=== PATIENT | female | born 1985 | race African-American/Black ===

== ENCOUNTER 2016-06-05 19:54 | Emergency (ER) | payer MEDICAID, OTHER ==
[2016-06-05] MEDS ORDERED: NS 1,000 ML IV ONE (20:32)
[2016-06-05] MEDS ORDERED: ONDANSETRON 4 MG/2 ML VIAL IVP ONE (20:32)
--- NOTE | 2016-06-05 20:36 | UCPHY ---
H & P Time Seen by Provider: 06/05/16 20:10 Patient Type: Established HPI/ROS: CHIEF COMPLAINT: abdominal pain, diarrhea HISTORY OF PRESENT ILLNESS: Patient is a 30-year-old female who presents to the emergency department with abdominal pain and diarrhea starting this morning. The triage note states this started 3 days ago, but the patient reiterates that her symptoms started this morning. Patient describes mid abdominal discomfort. This is waxing and waning. It is moderate. It does not radiate. She has had nausea but no vomiting. Her diarrhea is nonbloody. She has had 3 total episodes today. She denies fevers or chills. Patient states she had her gallbladder out in April. She has an appointment with the surgeon tomorrow. REVIEW OF SYSTEMS: My complete review of systems is negative except as mentioned in the HPI. Past Medical/Surgical History: Includes hypertension, migraines Past surgical history: Cholecystectomy Social history: The patient does not smoke. Smoking Status: Never smoked Physical Exam: Vitals noted GENERAL: Well-appearing, in no acute distress, alert. HEENT: Eyes normal to inspection, normal pharynx, no signs of dehydration. NECK: No thyromegaly, no lymphadenopathy, supple. RESPIRATORY: Clear to auscultation bilaterally, no rales, rhonchi or wheezing. CVS: Regular rate and rhythm, no rubs, murmurs, or gallops. ABDOMEN: Soft, nondistended, no organomegaly. Mild tenderness to palpation just superior to the umbilicus. This is minimal. No rebound or guarding. BACK: Normal to inspection, no CVA tenderness. SKIN: Normal color, no rash, warm, dry. No pallor. EXTREMITIES: No pedal edema, no joint swelling. NEURO/PSYCH: Alert and oriented, normal mood and affect Constitutional: Initial Vital Signs Temperature (C) 37 C 06/05/16 19:56 Heart Rate 93 06/05/16 19:56 Respiratory Rate 14 06/05/16 19:56 Blood Pressure 143/89 H 06/05/16 19:56 O2 Sat (%) 97 06/05/16 19:56 O2 Delivery Mode Room Air Allergies/Adverse Reactions: No Known Allergies Allergy (Verified 06/05/16 19:55) Home Medications: Medication Instructions Recorded Lisinopril [Prinivil] 03/22/15 Minocycline HCl 10/30/15 Neurontin 10/30/15 SUMATRIPTAN SUCCINATE 10/30/15 Medical Decision Making ED Course/Re-evaluation: In urgent care discussed possible etiologies with the patient. I discussed the plan and answered all her questions. An IV was placed. The patient was given a L of normal saline for hydration. She was given Zofran 4 mg IV for nausea. Laboratory studies were obtained. Patient's chemistry and CBC were normal. Lipase was normal. Patient's AST and ALT were slightly elevated. Bilirubin was normal. Patient is noted to have recently had her gallbladder removed. I rechecked the patient. She was feeling better. On repeat examination abdomen was soft, nontender and nondistended. I discussed all her laboratory results. She will follow up with her surgeon tomorrow. She already has an appointment scheduled. She is given warnings prior to leaving. She will return with worsening symptoms. Differential Diagnosis: My differential includes but is not limited to viral illness, small-bowel obstruction, perforation, appendicitis, ovarian cyst, ovarian torsion, , ectopic , dehydration, electrolyte abnormality, sugar abnormality - Data Points Laboratory Results: Laboratory Results 06/05/16 21:02 06/05/16 21:02 06/05/16 06/05/16 06/05/16 21:02 21:02 21:02 WBC 5.27 10^3/uL 10^3/uL (3.80-9.50) RBC 4.53 10^6/uL 10^6/uL (4.18-5.33) Hgb 12.7 g/dL g/dL (12.6-16.3) Hct 38.3 % % (38.0-47.0) MCV 84.5 fL fL (81.5-99.8) MCH 28.0 pg pg (27.9-34.1) MCHC 33.2 g/dL g/dL (32.4-36.7) RDW 13.0 % % (11.5-15.2) Plt Count 229 10^3/uL 10^3/uL (150-400) MPV 9.8 fL fL (8.7-11.7) Neut % (Auto) 63.3 % % (39.3-74.2) Lymph % (Auto) 23.7 % % (15.0-45.0) [place] % (Auto) 6.3 % % (4.5-13.0) Eos % (Auto) 6.1 % % (0.6-7.6) Baso % (Auto) 0.2 % L % (0.3-1.7) Nucleat RBC Rel Count 0.0 % % (0.0-0.2) Absolute Neuts (auto) 3.34 10^3/uL 10^3/uL (1.70-6.50) Absolute Lymphs (auto) 1.25 10^3/uL 10^3/uL (1.00-3.00) Absolute Monos (auto) 0.33 10^3/uL 10^3/uL (0.30-0.80) Absolute Eos (auto) 0.32 10^3/uL 10^3/uL (0.03-0.40) Absolute Basos (auto) 0.01 10^3/uL L 10^3/uL (0.02-0.10) Absolute Nucleated RBC 0.00 10^3/uL 10^3/uL (0-0.01) Immature Gran % 0.4 % % (0.0-1.1) Immature Gran # 0.02 10^3/uL 10^3/uL (0.00-0.10) Sodium 137 mEq/L mEq/L (134-144) Potassium 3.7 mEq/L mEq/L (3.5-5.2) Chloride 101 mEq/L mEq/L (97-110) Carbon Dioxide 26 mEq/l mEq/l (22-31) Anion Gap 10 mEq/L mEq/L (8-16) BUN 10 mg/dL mg/dL (7-23) Creatinine 0.7 mg/dL mg/dL (0.6-1.0) Estimated GFR > 60 Glucose 86 mg/dL mg/dL (70-100) Calcium 9.1 mg/dL mg/dL (8.5-10.4) Total Bilirubin 0.9 mg/dL mg/dL (0.1-1.4) Conjugated Bilirubin 0.2 mg/dL mg/dL (0.0-0.5) Unconjugated Bilirubin 0.7 mg/dL mg/dL (0.0-1.1) AST 155 IU/L H IU/L (14-46) ALT 145 IU/L H IU/L (9-52) Alkaline Phosphatase 63 IU/L IU/L (38-126) Total Protein 6.9 g/dL g/dL (6.3-8.2) Albumin 3.5 g/dL g/dL (3.5-5.0) Lipase 116.0 IU/L IU/L (23-300) Beta HCG, Qual NEGATIVE Urine Color Urine Appearance Urine pH Ur Specific [place] Urine Protein Urine Ketones Urine Blood Urine Nitrate Urine Bilirubin Urine Urobilinogen Ur Leukocyte Esterase Ur Culture Indicated? Urine Glucose 06/05/16 20:45 WBC RBC Hgb Hct MCV MCH MCHC RDW Plt Count MPV Neut % (Auto) Lymph % (Auto) [place] % (Auto) Eos % (Auto) Baso % (Auto) Nucleat RBC Rel Count Absolute Neuts (auto) Absolute Lymphs (auto) Absolute Monos (auto) Absolute Eos (auto) Absolute Basos (auto) Absolute Nucleated RBC Immature Gran % Immature Gran # Sodium Potassium Chloride Carbon Dioxide Anion Gap BUN Creatinine Estimated GFR Glucose Calcium Total Bilirubin Conjugated Bilirubin Unconjugated Bilirubin AST ALT Alkaline Phosphatase Total Protein Albumin Lipase Beta HCG, Qual Urine Color YELLOW Urine Appearance CLEAR Urine pH 6.0 (5.0-7.5) Ur Specific [place] 1.010 (1.002-1.030) Urine Protein NEGATIVE (NEGATIVE) Urine Ketones NEGATIVE (NEGATIVE) Urine Blood NEGATIVE (NEGATIVE) Urine Nitrate NEGATIVE (NEGATIVE) Urine Bilirubin NEGATIVE (NEGATIVE) Urine Urobilinogen 0.2 EU EU (0.2-1.0) Ur Leukocyte Esterase NEGATIVE (NEGATIVE) Ur Culture Indicated? NOT INDICATED (NI) Urine Glucose NEGATIVE (NEGATIVE) Medications Given: Discontinued Medications Sodium Chloride (Ns) 1,000 mls @ 0 mls/hr IV ONCE ONE PRN Reason: Wide Open Stop: 06/05/16 20:33 Last Admin: 06/05/16 21:06 Dose: 1,000 mls Ondansetron HCl (Zofran) 4 mg IVP EDNOW ONE Stop: 06/05/16 20:33 Last Admin: 06/05/16 21:06 Dose: 4 mg Departure - Departure Disposition: Home, Routine, Self-Care Clinical Impression: Abdominal pain Qualifiers: Abdominal location: periumbilical Qualified Code(s): R10.33 - Periumbilical pain Diarrhea Qualifiers: Diarrhea type: presumed infectious Qualified Code(s): A09 - Infectious gastroenteritis and colitis, unspecified Condition: Good Instructions: Acute Diarrhea (ED), Abdominal Pain (ED) Additional Instructions: Return with increasing pain, worsening diarrhea, persistent fever, repeated vomiting or any other concerns. You need close follow-up. Keep your appointment with your surgeon tomorrow. Referrals: Marianna Sumner MD [Medical Doctor] - 1-2 days without fail - PQRS PQRS Measurement: My PQRS negative my PQRS negative my PQRS negative my PQRS negative 134: Depression screening and followup, PRIME MD-PHQ2 (12 years and older) Over the last 2 weeks, how often have you been bothered by any of the following problems? 1. Feeling down, depressed, or hopeless? 2. Little interest or pleasure in doing things? Patient answered no to both 1 and 2 130: Documentation of medications. Reviewed all patient medications, doses, route and frequency. 226: Do you smoke? No.
[2016-06-05 20:55] LABS: COLOR YELLOW; LEUKOCYTE ESTERASE,URINE NEGATIVE (NEGATIVE); NITRITE,URINE NEGATIVE (NEGATIVE)
[2016-06-05 21:07] LABS: % IMMATURE GRANULYOCYTES 0.4 % (0.0-1.1); ABSOLUTE IMMATURE GRANULOCYTES 0.02 10^3/uL (0.00-0.10); ADD DIFF? NO; ADD MORPH? NO; ADD SCAN? NO; ATYPICAL LYMPHOCYTE FLAG 30 (0-99); FRAGMENT RBC FLAG 0 (0-99); HEMATOCRIT 38.3 % (38.0-47.0); HEMOGLOBIN 12.7 g/dL (12.6-16.3); LEFT SHIFT FLG 0 (0-99); LIPEMIA HEMOLYSIS FLAG 80 (0-99); MEAN CELL HEMOGLOBIN CONCENTR. 33.2 g/dL (32.4-36.7); MEAN CELL VOLUME 84.5 fL (81.5-99.8); MEAN PLATELET VOLUME 9.8 fL (8.7-11.7); PLATELET CLUMPS FLAG 30 (0-99); PLATELET COUNT 229 10^3/uL (150-400); RED BLOOD CELL COUNT 4.53 10^6/uL (4.18-5.33)
[2016-06-05 21:20] LABS: ALANINE AMINOTRANSFERASE 145 IU/L (9-52); ALBUMIN 3.5 g/dL (3.5-5.0); ALKALINE PHOSPHATASE 63 IU/L (38-126); ANION GAP 10 mEq/L (8-16); ASPARTATE AMINOTRANSFERASE 155 IU/L (14-46); BILIRUBIN,TOTAL 0.9 mg/dL (0.1-1.4); BILIRUBIN-CONJUGATED 0.2 mg/dL (0.0-0.5); BILIRUBIN-UNCONJUGATED 0.7 mg/dL (0.0-1.1); CALCIUM 9.1 mg/dL (8.5-10.4); CARBON DIOXIDE 26 mEq/l (22-31); CHLORIDE 101 mEq/L (97-110); CREATININE 0.7 mg/dL (0.6-1.0); GLOMERULAR FILTRATION RATE > 60; GLUCOSE 86 mg/dL (70-100); POTASSIUM 3.7 mEq/L (3.5-5.2); SODIUM 137 mEq/L (134-144); TOTAL PROTEIN 6.9 g/dL (6.3-8.2)
[2016-06-05 21:59] VITALS: BP 133/86; PULSE 81; RESP 20; TEMP 98.4; O2SAT 98
== END 2016-06-05 21:56 | disposition home or self-care (01) ==
LOC: CED 19:54
DX: R10.9 Unspecified abdominal pain (principal); R19.7 Diarrhea, unspecified; I10 Essential (primary) hypertension
CPT/HCPCS: 80048-PO; 80076-PO; 81003-PO; 83690-PO; 84703-PO; 85025-PO; 96360-PO; 96361-PO; 96374-PO; 99215-PO; G0463-PO; J2405

== ENCOUNTER 2016-09-08 17:34 | Emergency (ER) | payer MEDICAID ==
[2016-09-08 18:05] VITALS: BP 130/78; PULSE 73; RESP 20
--- NOTE | 2016-09-08 18:19 | EDPHY ---
H & P Stated Complaint: itchy painful right ear HPI/ROS: CHIEF COMPLAINT: Right ear pain and itchiness HISTORY OF PRESENT ILLNESS: This is a 30-year-old female with a history of migraine headache and hypertension who presents with right ear discomfort and itchiness. This began yesterday. She experiences pain that is short lived, lasting a few seconds, and intermittent, occurring every 5 minutes or less. It is not exacerbated by chewing or talking. There has been no drainage from the ear. She has not had headache. She does not have fever. She denies sore throat, cough, rhinorrhea. No trauma to the ear. REVIEW OF SYSTEMS: A ten point review of systems was performed and is negative with the exception of the items mentioned in the HPI. Source: Patient Exam Limitations: No limitations - Personal History LMP (Females 10-55): Unknown Current Tetanus/Diphtheria Vaccine: Unsure Current Tetanus Diphtheria and Acellular Pertussis (TDAP): Unsure Tetanus Vaccine Date: < 10 years - Medical/Surgical History Hx Asthma: No Hx Chronic Respiratory Disease: No Hx Diabetes: No Hx Cardiac Disease: No Hx Renal Disease: No Hx Cirrhosis: No Hx Alcoholism: No Hx HIV/AIDS: No Hx Splenectomy or Spleen Trauma: No Other PMH: hypertension, migraines, christie 05/04/16. - Social History Smoking Status: Never smoked Additional Social History: She is working in a [employer] school. No tobacco or alcohol use. - Physical Exam Exam: General Appearance: Alert. Vital signs reviewed. Blood pressure 130/78. Eyes: Pupils equal and round, no conjunctival injection, no discharge. Anicteric. ENT, Mouth: Mucous membranes are moist, no oropharyngeal erythema or edema. No intraoral lesions. External auditory canals and tympanic membranes appear normal. The left tympanic membrane is partially (about 1/3) obscured by cerumen. No mastoid swelling or tenderness. Neck: No lymphadenopathy, supple. Respiratory: Lungs are clear to auscultation; no wheezes, rales, or rhonchi. Cardiovascular: Regular rate and rhythm; no murmur, rub, or gallop. Gastrointestinal: Abdomen is soft and nontender. Skin: Warm and dry, no rashes on exposed skin, normal color. Extremities: No lower extremity edema, no calf tenderness or swelling. Neurological: Alert and oriented. Moving all four extremities easily and equally. Psychiatric: Normal affect. Constitutional: Initial Vital Signs Temperature (C) 36.9 C 09/08/16 18:00 Heart Rate 73 09/08/16 18:00 Respiratory Rate 20 09/08/16 18:00 Blood Pressure 130/78 H 09/08/16 18:00 O2 Sat (%) 100 09/08/16 18:00 O2 Delivery Mode Room Air Allergies/Adverse Reactions: No Known Allergies Allergy (Verified 09/08/16 17:58) Home Medications: Medication Instructions Recorded Lisinopril [Prinivil] 03/22/15 Minocycline HCl 10/30/15 Neurontin 10/30/15 SUMATRIPTAN SUCCINATE 10/30/15 Medical Decision Making ED Course/Re-evaluation: I do not find an etiology for her ear pain and itchiness. Seems unlikely that this is environmental allergy, as it is so localized. There is no evidence of otitis externa or otitis media. She has some cerumen in the left ear but very little cerumen in the right ear. Given the intermittent nature of her discomfort it is possible that this is a trigeminal neuralgia. The pain does not seem to be lancinating or particularly severe at the time that I examine her. She is not experiencing dizziness or vertigo. There has been no change in her hearing. I am recommending symptomatic treatment with Tylenol and ibuprofen. I am also recommending an antihistamine for the itching sensation. Departure - Departure Disposition: Home, Routine, Self-Care Clinical Impression: Ear pain, right Condition: Good Instructions: Earache (ED) Additional Instructions: Adult Pain & Fever Control: We recommend Acetaminophen (Tylenol) and Ibuprofen (Motrin,Advil) for pain and fever control. When fever is high or pain severe, both drugs can be used at the same time, but at different intervals. Please note the time differences. Your dose is: Acetaminophen [650]mg every 4 to 6 hours Ibuprofen [400]mg every [for] hours with food Note: do not take Acetaminophen with Hydrocodone (Vicodin, Lortab) or Oycodone (Percocet). These medications also contain Acetaminophen. No more than 3000mg of Acetaminophen should be taken in 24 hours (for an adult). You might also try a medication for itching such as Benadryl or Claritin. Benadryl might make you sleepy, Claritin will not. I do not see evidence of infection in either ear. Keep your appointment on at [facility]. Referrals: NONE *PRIMARY CARE P,. [Primary Care Provider] - As per Instructions [facility] [Outside] - As per Instructions
[2016-09-08 18:26] VITALS: TEMP 98.6; O2SAT 99
== END 2016-09-08 18:25 | disposition home or self-care (01) ==
LOC: CED 17:34
DX: H92.01 Otalgia, right ear (principal); I10 Essential (primary) hypertension

== ENCOUNTER 2017-01-20 13:56 | Emergency (ER) | payer MEDICAID ==
--- NOTE | 2017-01-20 14:23 | EDPHY ---
H & P Time Seen by Provider: 01/20/17 14:17 HPI/ROS: CHIEF COMPLAINT: Left hand laceration HISTORY OF PRESENT ILLNESS: The patient is a 31-year-old female who presents to the emergency department with a left hand laceration sustained while moving glass yesterday. It initially blood but the bleeding has been controlled. She is given today to have "it checked out." Her pain is controlled food. It is mild. No numbness or tingling. No other injury. REVIEW OF SYSTEMS: Negative Past history: Noncontributory Smoking Status: Never smoked Physical Exam: Vitals noted General Appearance: Alert and no distress. Head: Pupils equal. Normal. Respiratory: No respiratory distress. Cardiac: regular rate and rhythm. Extremities: left hand: There is a 0.5 cm laceration on the left greater thenar eminence. No palpable foreign body. Bleeding is controlled. This appears fairly superficial. Skin: No rashes or lesions. Neuro: Alert. Normal mood and affect. Allergies/Adverse Reactions: No Known Allergies Allergy (Verified 09/08/16 17:58) Home Medications: Medication Instructions Recorded Lisinopril [Prinivil] 03/22/15 Minocycline HCl 10/30/15 Neurontin 10/30/15 SUMATRIPTAN SUCCINATE 10/30/15 Medical Decision Making ED Course/Re-evaluation: In the emergency department I discussed treatment options with the patient. Her laceration was sustained yesterday. Patient also has a superficial laceration. At this time I do not feel she needs sutures. We will clean her wound and dressed with bacitracin and a Band-Aid. Patient agrees with this plan. Differential Diagnosis: My differential includes but is not limited to laceration, foreign body, tendon injury, muscle injury, tetanus status updated Departure - Departure Disposition: Home, Routine, Self-Care Clinical Impression: Laceration of left hand Qualifiers: Encounter type: initial encounter Foreign body presence: without foreign body Qualified Code(s): S61.412A - Laceration without foreign body of left hand, initial encounter Condition: Good Instructions: Laceration (ED) Additional Instructions: Keep the wound clean and dry. Return with increasing redness, pain, discharge or any other concerns. Referrals: BRYANT ERNST,Dari [Primary Care Provider] - 3-4 days, if not improved
[2017-01-20 14:26] VITALS: BP 147/60; PULSE 64; RESP 16; TEMP 98.1; O2SAT 99
[2017-01-20] MEDS ORDERED: TDAP ADULT 0.5 ML INJ (BOOSTRIX) IM ONE (14:42)
== END 2017-01-20 14:58 | disposition home or self-care (01) ==
LOC: CED 13:56
DX: S61.412A Laceration without foreign body of left hand, initial encounter (principal); Z23 Encounter for immunization; W25.XXXA Contact with sharp glass, initial encounter

== ENCOUNTER 2017-02-11 23:27 | Emergency (ER) | payer MEDICAID ==
[2017-02-11 23:41] VITALS: BP 142/87; PULSE 66; RESP 16; TEMP 98.4; O2SAT 98
--- NOTE | 2017-02-12 00:10 | EDPHY ---
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 This is a syoi-ib-xjebyrax degree. His bowels and also associated nasal stuffiness and runny nose. No cough. There has been no phlegm or wheezing. No pain when she leans forward She did have some fever blisters left upper lip last week while on onset when it was 4 days ago and she has been using some Advil the ear with some success in improvement. She typically gets these on occasion No body aches, headache or cough ROS: Constitutional - no fevers or chills. Eyes - no discharge, or injection ENT - no earache, change in hearing, mild difficulty swallowing. Respiratory - No Shortness of breath, phlegm, wheezing or pleuritic chest pain. Integument - no rashes. Neurological - no headache, numbness, tingling, or paresthesias. No focal motor weakness. Immunological - no swelling or lymphadenopathy 10 point ROS otherwise negative Smoking Status: Never smoked Physical Exam: Gen: Well developed, well nourished. Nontoxic. Thin woman. HEENT: Normocephalic. Ears: TMs are clear. Hearing normal. Sinuses are nontender to palpation Eyes: PERRL. No conjunctival injection or pallor. no jaundice. Nose: No nasal discharge. Sinuses are nontender. Throat: Membranes are moist. Oropharynx is without erythema or exudate. Normal phonation. No adenopathy Neck: Trachea is in the ML. No laryngeal tenderness. No adenopathy Lungs: Good air entry into both lungs. No rales rhonchi or wheezes. No air hunger. No respiratory distress. Skin: Good color, without pallor. There is no diaphoresis. Skin is warm and dry , without diaphoresis. Intact without rashes Constitutional: Initial Vital Signs Temperature (C) 36.9 C 02/11/17 23:38 Heart Rate 66 02/11/17 23:38 Respiratory Rate 16 02/11/17 23:38 Blood Pressure 142/87 H 02/11/17 23:38 O2 Sat (%) 98 02/11/17 23:38 O2 Delivery Mode Room Air Allergies/Adverse Reactions: sumatriptan Allergy (Verified 01/20/17 14:23) Home Medications: Medication Instructions Recorded Lisinopril [Prinivil] 03/22/15 Neurontin 10/30/15 Medical Decision Making ED Course/Re-evaluation: Rapid strep was negative. Symptomatic treatment is in order for this URI. Formal culture of strep is pending tomorrow. She will be notified if positive. Differential Diagnosis: Diagnostic considerations include, but are not limited to, the following: URI, sinusitis, pharyngitis, otitis media, pneumonia, allergy, influenza. - Data Points Laboratory Results: 02/11/17 02/11/17 Unknown 23:45 Group A Strep Screen NEGATIVE (NEGATIVE) Group A Strep DNA Pending Departure - Departure Disposition: Home, Routine, Self-Care Clinical Impression: Acute upper respiratory infection Acute pharyngitis Qualifiers: Pharyngitis/tonsillitis etiology: unspecified etiology Qualified Code(s): J02.9 - Acute pharyngitis, unspecified Condition: Good Instructions: Upper Respiratory Infection (ED) Additional Instructions: Tylenol or Advil for symptomatic treatment of your sore throat, as needed. Referrals: Patient,NotPresent [Primary Care Provider] - As per Instructions Stand Alone Forms: Work Excuse
== END 2017-02-12 00:17 | disposition home or self-care (01) ==
LOC: CED 23:27
DX: J02.9 Acute pharyngitis, unspecified (principal); J06.9 Acute upper respiratory infection, unspecified
CPT/HCPCS: 87880-PO

== ENCOUNTER 2017-04-24 03:32 | Emergency (ER) | payer MEDICAID ==
[2017-04-24] MEDS ORDERED: IBUPROFEN 600 MG TAB PO ONE (03:48)
[2017-04-24] MEDS ORDERED: ACETAMINOPHEN 500 MG TAB PO ONE (03:48)
[2017-04-24 03:52] VITALS: BP 137/63; PULSE 64; RESP 16; TEMP 97.5; O2SAT 98
--- NOTE | 2017-04-24 04:22 | EDPHY ---
H & P Time Seen by Provider: 04/24/17 03:57 HPI/ROS: Chief complaint: Right more so than left ear pain. Difficulty hearing. HPI: 31-year-old female with prior history of eustachian 2 blockage and URIs. She is seen here at the end of January for strep throat. She did have an episode of bronchitis this past March. This was followed by a common cold with scratchy throat blood the nose blowing or nose. Approximately 5-7 days ago she started developing trouble with pop in her in her ears and difficulty hearing. This was particularly worse when she would lay on her side as the ear would become totally blocked more so than pain per se. Some 3 days ago it was as if the ear became totally blocking she can't hear very well out of it. In the last day or 2 is become somewhat uncomfortable. Yesterday due to her prior problems and having seen an ear nose and throat before, she restarted her Fluocinolone. ROS: Constitutional - no fevers or chills. Eyes - no discharge, or injection ENT - see above. Integument - no rashes. Neurological - no headache, numbness, tingling, or paresthesias. No focal motor weakness. Immunological - no swelling or lymphadenopathy Smoking Status: Never smoked Physical Exam: Gen: Well developed, well nourished. Nontoxic. afebrile VSS HEENT: Normocephalic. Ears: Both ear canals are cerumen blocked with moist appearing wax. Eyes: PERRL. No conjunctival injection or pallor. no jaundice. Nose: No nasal discharge. Sinuses are nontender. Throat: Membranes are moist. Oropharynx is without erythema or exudate. Normal phonation. Neck: Trachea is in the ML. No laryngeal tenderness. No adenopathy Lungs: Good air entry into both lungs. No rales rhonchi or wheezes. No air hunger. No respiratory distress. Skin: Good color, without pallor. There is no diaphoresis. Skin is warm and dry , without diaphoresis. Intact without rashes Constitutional: Initial Vital Signs Temperature (C) 36.4 C 04/24/17 03:36 Heart Rate 64 04/24/17 03:36 Respiratory Rate 16 04/24/17 03:36 Blood Pressure 137/63 H 04/24/17 03:36 O2 Sat (%) 98 04/24/17 03:36 O2 Delivery Mode Room Air Allergies/Adverse Reactions: sumatriptan Allergy (Mild, Verified 04/24/17 03:33) Other-Enter Comments Home Medications: Medication Instructions Recorded Lisinopril [Prinivil] 03/22/15 Neurontin 10/30/15 Medication For Acne 04/24/17 Rizatriptan 04/24/17 Medical Decision Making ED Course/Re-evaluation: The chemistry quality control technician was able to lavage both ears unclear them of wax. I re-examined her at that time and could see some old scarring of the left TM. However both TMs are translucent, opaque, josefina colored as well as the canal being normal, without erythema or pain and traction of the pinna. Differential Diagnosis: Diagnostic considerations include, but are not limited to, the following: Otitis media, ear wax build up, otitis externa. - Data Points Medications Given: Discontinued Medications Acetaminophen (Tylenol) 1,000 mg PO EDNOW ONE Stop: 04/24/17 03:49 Last Admin: 04/24/17 03:55 Dose: 1,000 mg Ibuprofen (Motrin) 600 mg PO EDNOW ONE Stop: 04/24/17 03:49 Last Admin: 04/24/17 03:55 Dose: 600 mg Departure - Departure Disposition: Home, Routine, Self-Care Clinical Impression: Impacted cerumen of both ears Condition: Good Instructions: Cerumen Impaction (ED) Additional Instructions: As you are ears are clear and out at this point in time, there is no point in using any of the ear wax kits from the drugstore, at this time. As you do not use Q-tips, do not start because they will not help, they will simply aggravate things Referrals: Patient,NotPresent [Unknown] - As per Instructions
== END 2017-04-24 04:31 | disposition home or self-care (01) ==
LOC: CED 03:32
PROC: 3E1B78Z Irrigation of Ear using Irrigating Substance, Via Natural or Artificial Opening (ICD-10-PCS; principal; 2017-04-24)
DX: H61.23 Impacted cerumen, bilateral (principal)

== ENCOUNTER 2017-08-20 07:37 | Emergency (ER) | payer MEDICAID ==
[2017-08-20] MEDS ORDERED: ONDANSETRON 4 MG/2 ML VIAL IVP ONE (08:04)
[2017-08-20] MEDS ORDERED: NS 1,000 ML IV ONE (08:04)
[2017-08-20] MEDS ORDERED: FAMOTIDINE 20 MG/NACL 50 ML IV ONE (08:04)
[2017-08-20] MEDS ORDERED: KETOROLAC 30 MG/1 ML SDV IVP ONE (08:04)
--- NOTE | 2017-08-20 08:09 | EDPHY ---
H & P Time Seen by Provider: 08/20/17 08:04 HPI/ROS: HPI Abdominal pain. 31-year-old female by private vehicle with family. This patient reports that she was awoke an early this morning by mid abdominal pain which she describes as crampy and sharp at times. She reports the pain has been migrating down to her lower abdomen. She denies any associated nausea or vomiting. Last meal was an apple earlier this morning. She reports after she ate this apple that her pain worsen. Last bowel movement was this morning as well. She describes this as normal. No diarrhea. No bloody or melenic stool. Prior abdominal surgical history includes cholecystectomy. ROS: Constitutional: No fever, no chills. No weakness. Eyes: No discharge. No changes in vision. ENT: No sore throat. No nasal congestion or rhinorrhea. Respiratory: No cough. No shortness of breath. Cardiac: No chest pain, no palpitations. Gastrointestinal: As above, no vomiting, no diarrhea. Genitourinary: No hematuria. No dysuria or increased frequency with urination. Musculoskeletal: No back pain. No neck pain. No myalgias or arthralgias. Skin: No rashes. Neurological: No headache. No focal weakness or altered sensation. Past medical history: Hypertension, migraines, cholecystectomy, chronic ear infections, eustachian tubes, acne. Social history: Nonsmoker. No alcohol. Here with family. Physical Exam: General Appearance: Alert, pleasant 31-year-old female, she does not appear to be in distress. This patient is responding to questions appropriately and in full sentences. This patient appears well-hydrated and well-nourished. Eyes: Pupils equal and round no pallor or injection. No lid edema, erythema or injection. Respiratory: There are no retractions, lungs are clear to auscultation with good air movement bilaterally. Cardiovascular: Regular rate and rhythm. No murmur. Gastrointestinal: Abdomen is soft with vague periumbilical and lower abdominal tenderness on palpation, no masses, bowel sounds normal. No focal tenderness at McBurney's point. No Black sign. Neurological: Motor sensory function is grossly intact. Cranial nerves are normal. Gait is normal. Skin: Warm and dry, no rashes. Musculoskeletal: Neck is supple and nontender. Extremities are symmetrical. All joints range without pain or impingement. Psychiatric: No agitation. No depression. Database: EKG: Imaging: CT of abdomen and pelvis with IV contrast: Significant for some mild thickening of the gastric antrum, probably digital sales representative of gastritis. The appendix is well visualized and is normal. No surgical etiology of her pain. Probable liver hemangiomas noted. Radiologist recommends follow-up MRI to further evaluate. Results were discussed with staff radiologist Dr. Dennis Castillo. Procedures: Emergency department course: IV placed. Patient was placed on a monitor. Vital signs reviewed and are normal. She was started on IV normal saline with 1 L to be given over the next hour. She has no contraindications to NSAIDs. No history of renal dysfunction or peptic ulcer disease. She was given 30 mg of IV Toradol for pain. She will also be given 4 mg of IV Zofran for nausea as needed. Her physical exam and history does not exclude appendicitis is in etiology of her pain. She consents to CT imaging. 10:15 a.m., patient re-evaluated. Resting comfortably at this time. She has been taking oral fluids. Repeat abdominal exam she is soft, nontender nondistended. Results of her CT imaging and emergency department workup discussed with her and her family. The differential diagnosis was reviewed. She feels comfortable going home at this time and I feel she is safe for discharge. Follow-up and return to emergency department precautions reviewed with her and her family. All of their questions were answered. She was discharged from the emergency department in good condition. Differential Diagnosis: The differential diagnosis on this patient includes but is not limited to gastritis, enteritis, appendicitis. Cholecystectomy, volvulus/bowel obstruction unlikely. This represents a partial list of diagnoses considered. These considerations are based on history, physical exam, past history, reassessment and diagnostic testing. Smoking Status: Never smoked Constitutional: Initial Vital Signs Temperature (C) 37.0 C 08/20/17 07:41 Heart Rate 81 08/20/17 07:41 Respiratory Rate 16 08/20/17 07:41 Blood Pressure 117/79 08/20/17 07:41 O2 Sat (%) 99 08/20/17 07:41 O2 Delivery Mode Room Air Allergies/Adverse Reactions: sumatriptan Allergy (Mild, Verified 04/24/17 03:33) Other-Enter Comments Home Medications: Medication Instructions Recorded Lisinopril [Prinivil] 03/22/15 Neurontin 10/30/15 Medication For Acne 04/24/17 Rizatriptan 04/24/17 Omeprazole 08/20/17 Ondansetron Odt [Zofran Odt 4 mg 4 mg PO Q4PRN PRN #10 tab 08/20/17 (*)] Medical Decision Making - Diagnostics Imaging Results: Imaging Impressions Abdomen CT 08/20/17 08:04 Impression: 1. Mild circumferential thickening of the gastric antrum, which could be related to gastritis or less likely underdistention. 2. Small amount of free fluid in the pelvis, which could be related to recent cyst rupture. 3. Multiple indeterminate hepatic lesions, likely representing hemangiomas, but incompletely characterized on this CT. MR abdomen with contrast could be performed for further evaluation. 4. Additional findings as above. Findings discussed with Tyrell Temple MD 08/20/2017 at 9:54 a.m. - Data Points Laboratory Results: Laboratory Results 08/20/17 08:20 08/20/17 08:20 08/20/17 08/20/17 08/20/17 08:20 08:20 08:20 WBC 4.14 10^3/uL 10^3/uL (3.80-9.50) RBC 4.68 10^6/uL 10^6/uL (4.18-5.33) Hgb 13.2 g/dL g/dL (12.6-16.3) Hct 40.2 % % (38.0-47.0) MCV 85.9 fL fL (81.5-99.8) MCH 28.2 pg pg (27.9-34.1) MCHC 32.8 g/dL g/dL (32.4-36.7) RDW 12.7 % % (11.5-15.2) Plt Count 148 10^3/uL L 10^3/uL (150-400) MPV 10.9 fL fL (8.7-11.7) Neut % (Auto) 58.0 % % (39.3-74.2) Lymph % (Auto) 30.7 % % (15.0-45.0) [place] % (Auto) 9.2 % % (4.5-13.0) Eos % (Auto) 1.4 % % (0.6-7.6) Baso % (Auto) 0.5 % % (0.3-1.7) Nucleat RBC Rel Count 0.0 % % (0.0-0.2) Absolute Neuts (auto) 2.40 10^3/uL 10^3/uL (1.70-6.50) Absolute Lymphs (auto) 1.27 10^3/uL 10^3/uL (1.00-3.00) Absolute Monos (auto) 0.38 10^3/uL 10^3/uL (0.30-0.80) Absolute Eos (auto) 0.06 10^3/uL 10^3/uL (0.03-0.40) Absolute Basos (auto) 0.02 10^3/uL 10^3/uL (0.02-0.10) Absolute Nucleated RBC 0.00 10^3/uL 10^3/uL (0-0.01) Immature Gran % 0.2 % % (0.0-1.1) Immature Gran # 0.01 10^3/uL 10^3/uL (0.00-0.10) Sodium 141 mEq/L mEq/L (135-145) Potassium 4.7 mEq/L mEq/L (3.5-5.2) Chloride 104 mEq/L mEq/L (97-110) Carbon Dioxide 26 mEq/l mEq/l (22-31) Anion Gap 11 mEq/L mEq/L (8-16) BUN 13 mg/dL mg/dL (7-23) Creatinine 0.7 mg/dL mg/dL (0.6-1.0) Estimated GFR > 60 Glucose 100 mg/dL mg/dL (70-100) Calcium 8.7 mg/dL mg/dL (8.5-10.4) Total Bilirubin 0.9 mg/dL mg/dL (0.1-1.4) Conjugated Bilirubin 0.5 mg/dL mg/dL (0.0-0.5) Unconjugated Bilirubin 0.4 mg/dL mg/dL (0.0-1.1) AST 47 IU/L H IU/L (14-46) ALT 48 IU/L IU/L (9-52) Alkaline Phosphatase 71 IU/L IU/L (38-126) Total Protein 7.6 g/dL g/dL (6.3-8.2) Albumin 4.0 g/dL g/dL (3.5-5.0) Lipase 240 IU/L IU/L (23-300) Beta HCG, Qual NEGATIVE Specimen Hemolysis 109 Urine Color Urine Appearance Urine pH Ur Specific [place] Urine Protein Urine Ketones Urine Blood Urine Nitrate Urine Bilirubin Urine Urobilinogen Ur Leukocyte Esterase Urine RBC Urine WBC Ur Epithelial Cells Urine Mucus Urine Glucose 08/20/17 07:55 WBC RBC Hgb Hct MCV MCH MCHC RDW Plt Count MPV Neut % (Auto) Lymph % (Auto) [place] % (Auto) Eos % (Auto) Baso % (Auto) Nucleat RBC Rel Count Absolute Neuts (auto) Absolute Lymphs (auto) Absolute Monos (auto) Absolute Eos (auto) Absolute Basos (auto) Absolute Nucleated RBC Immature Gran % Immature Gran # Sodium Potassium Chloride Carbon Dioxide Anion Gap BUN Creatinine Estimated GFR Glucose Calcium Total Bilirubin Conjugated Bilirubin Unconjugated Bilirubin AST ALT Alkaline Phosphatase Total Protein Albumin Lipase Beta HCG, Qual Specimen Hemolysis Urine Color YELLOW Urine Appearance CLEAR Urine pH 7.0 (5.0-7.5) Ur Specific [place] 1.011 (1.002-1.030) Urine Protein NEGATIVE (NEGATIVE) Urine Ketones NEGATIVE (NEGATIVE) Urine Blood NEGATIVE (NEGATIVE) Urine Nitrate NEGATIVE (NEGATIVE) Urine Bilirubin NEGATIVE (NEGATIVE) Urine Urobilinogen 2.0 EU H EU (0.2-1.0) Ur Leukocyte Esterase NEGATIVE (NEGATIVE) Urine RBC 1-3 /hpf /hpf (0-3) Urine WBC 5-10 /hpf H /hpf (0-3) Ur Epithelial Cells TRACE /lpf /lpf (NONE-1+) Urine Mucus TRACE /lpf /lpf (NONE-1+) Urine Glucose NEGATIVE (NEGATIVE) Medications Given: Discontinued Medications Sodium Chloride (Ns) 1,000 mls @ 0 mls/hr IV EDNOW ONE; Wide Open PRN Reason: Protocol Stop: 08/20/17 08:05 Last Admin: 08/20/17 08:25 Dose: 1,000 mls Famotidine/Sodium Chloride (Pepcid 20 Mg (Premix)) 50 mls @ 200 mls/hr IV EDNOW ONE Stop: 08/20/17 08:18 Last Admin: 08/20/17 08:26 Dose: 50 mls Ketorolac Tromethamine (Toradol) 30 mg IVP EDNOW ONE Stop: 08/20/17 08:05 Last Admin: 08/20/17 08:19 Dose: 30 mg Ondansetron HCl (Zofran) 4 mg IVP EDNOW ONE Stop: 08/20/17 08:05 Last Admin: 08/20/17 08:26 Dose: 4 mg Departure - Departure Disposition: Home, Routine, Self-Care Clinical Impression: Abdominal pain Condition: Good Instructions: Abdominal Pain (ED) Additional Instructions: Read and follow provided instructions. Follow-up with your primary care physician in 1-2 days for re-evaluation as discussed. Take your medication as prescribed. Especially you're Prilosec. You can also take Tums as directed on the packaging. Return to the emergency department for worsening pain, vomiting and inability to keep fluids down, blood in your stool, dark or black colored stool or other serious concerns. An MRI of your abdomen with IV contrast should be performed at sometime within the next month to further evaluate probable liver hemangiomas as discussed with you. This can be arranged by her primary care physician. Referrals: Ya Cole MD [Primary Care Provider] - As per Instructions Prescriptions: Ondansetron Odt [Zofran Odt 4 mg (*)] 4 mg PO Q4PRN PRN #10 tab PRN Reason: For Nausea & Vomiting
[2017-08-20 08:29] LABS: PLATELET COUNT 148 10^3/uL (150-400)
[2017-08-20] MEDS ORDERED: IOPAMIDOL (ISOVUE-300) 100 ML BTL ONE (09:02)
[2017-08-20 10:38] VITALS: BP 134/88
== END 2017-08-20 10:38 | disposition home or self-care (01) ==
DX: R10.30 Lower abdominal pain, unspecified (principal); E86.9 Volume depletion, unspecified; I10 Essential (primary) hypertension; Z90.49 Acquired absence of other specified parts of digestive tract
CPT/HCPCS: 96374; J1885; J2405; Q9967

== ENCOUNTER 2017-09-18 22:14 | Emergency (ER) | payer MEDICAID ==
--- NOTE | 2017-09-18 22:38 | CPEKG ---
Heart Rate: 65 RR Interval: 923 P-R Interval: 144 QRSD Interval: 68 QT Interval: 392 QTC Interval: 408 P Buford: 76 QRS [place]: 48 T Wave [place]: 27 EKG Severity - NORMAL ECG - EKG Impression: SINUS RHYTHM Electronically Signed By: Frances English 19-Sep-2017 06:15:44
[2017-09-18 23:19] LABS: PLATELET COUNT 220 10^3/uL (150-400)
--- NOTE | 2017-09-18 23:27 | EDPHY ---
H & P Stated Complaint: c/o intermittent bilat cp x 24 hrs, pt says no sob/diaphoresis /n/v Time Seen by Provider: 09/18/17 22:26 HPI/ROS: HPI The patient presents with chest pain which is bilateral and has been present intermittently for the last 24 hr. The pain is described as a stinging sensation and is worse with changes in position and deep breaths. It does not radiate. She 1st noticed it last night. At last for hours at a time. It is still present. She has no prior history of similar. A few weeks ago she had a URI with a coughing continues to have a mild dry cough. She denies any nausea, vomiting, shortness of breath, diaphoresis.. REVIEW OF SYSTEMS Constitutional: No fever, no chills. Eyes: No discharge. ENT: No sore throat. Cardiovascular: Positive for chest pain, no palpitations. Respiratory: No cough, no shortness of breath. Gastrointestinal: No abdominal pain, no vomiting. Genitourinary: No hematuria. Musculoskeletal: No back pain. Skin: No rashes. Neurological: No headache. PMHx: Hypertension Soc Hx: Here with her family PHYSICAL General Appearance: Alert, no distress Eyes: Pupils equal and round no pallor or injection ENT, Mouth: Mucous membranes moist Respiratory: There are no retractions, lungs are clear to auscultation Cardiovascular: Regular rate and rhythm Chest wall: She is tender in her anterior chest wall to palpation Gastrointestinal: Abdomen is soft and non-tender, no masses, bowel sounds normal Neurological: A&O, moves all extremities Skin: Warm and dry, no rashes Musculoskeletal: Neck is supple non tender Extremities: symmetrical, full range of motion Psychiatric: Patient is oriented X 3, there is no agitation Source: Patient Exam Limitations: No limitations - Personal History Tetanus Vaccine Date: JAN 2017 - Medical/Surgical History Hx Asthma: No Hx Chronic Respiratory Disease: No Hx Diabetes: No Hx Cardiac Disease: Yes Hx Renal Disease: No Hx Cirrhosis: No Hx Alcoholism: No Hx HIV/AIDS: No Hx Splenectomy or Spleen Trauma: No Other PMH: hypertension, migraines, christie 05/04/16, chronic ear issues, acne, eustachian tube, gastritis, cyst removed from L ear - Social History Smoking Status: Never smoked Constitutional: Initial Vital Signs Temperature (C) 36.8 C 09/18/17 22:18 Heart Rate 78 09/18/17 22:18 Respiratory Rate 16 09/18/17 22:18 Blood Pressure 162/97 H 09/18/17 22:18 O2 Sat (%) 99 09/18/17 22:18 O2 Delivery Mode Room Air Allergies/Adverse Reactions: sumatriptan Allergy (Mild, Verified 09/18/17 22:24) Other-Enter Comments unk migraine med Allergy (Uncoded 09/18/17 22:24) Home Medications: Medication Instructions Recorded Lisinopril [Prinivil] 03/22/15 Neurontin 10/30/15 Medication For Acne 04/24/17 Rizatriptan 04/24/17 Omeprazole 08/20/17 Medical Decision Making - Diagnostics EKG Interpretation: EKG: Complete interpretation has been separately recorded in the [facility] archive. Summary impression: Normal sinus rhythm Imaging Results: Imaging Impressions Chest X-Ray 09/18/17 22:32 Impression: No significant radiographic abnormality. Specifically, a source for chest pain is not identified. Imaging: Discussed imaging studies w/ admission specialist Radiologist, I viewed and interpreted images myself Differential Diagnosis: This is a 31-year-old female with hypertension who presents with chest pain for the last 24 hr which has been intermittent, sharp and pleuritic, she has been sick with URI type symptoms over the last few weeks. On exam, she is hypertensive and is generally well-appearing. Differential diagnosis includes costochondritis, ACS, pleural effusion, pneumonia, PE, pericarditis. In the emergency department, the patient received Toradol with some improvement in her symptoms. Labs were checked and were unremarkable as well as chest x- ray and EKG. I suspect she has costochondritis and I have discussed this with her. Because she is currently being treated with a PPI for GERD, I explained ibuprofen as a safe this medicine for her to take though she needs to take it with food. She is in agreement with this plan. - Data Points Laboratory Results: Laboratory Results 09/18/17 22:53 09/18/17 22:53 09/18/17 09/18/17 09/18/17 23:00 22:53 22:53 WBC RBC Hgb Hct MCV MCH MCHC RDW Plt Count MPV Neut % (Auto) Lymph % (Auto) [place] % (Auto) Eos % (Auto) Baso % (Auto) Nucleat RBC Rel Count Absolute Neuts (auto) Absolute Lymphs (auto) Absolute Monos (auto) Absolute Eos (auto) Absolute Basos (auto) Absolute Nucleated RBC Immature Gran % Immature Gran # D-Dimer Sodium 139 mEq/L mEq/L (135-145) Potassium 4.0 mEq/L mEq/L (3.3-5.0) Chloride 103 mEq/L mEq/L (97-110) Carbon Dioxide 24 mEq/l mEq/l (22-31) Anion Gap 12 mEq/L mEq/L (8-16) BUN 10 mg/dL mg/dL (7-23) Creatinine 0.7 mg/dL mg/dL (0.6-1.0) Estimated GFR > 60 Glucose 97 mg/dL mg/dL (70-100) Calcium 8.9 mg/dL mg/dL (8.5-10.4) POC Troponin I 0.01 ng/mL ng/mL (0.00-0.08) Beta HCG, Qual NEGATIVE 09/18/17 09/18/17 22:53 22:53 WBC 6.43 10^3/uL 10^3/uL (3.80-9.50) RBC 4.33 10^6/uL 10^6/uL (4.18-5.33) Hgb 12.4 g/dL L g/dL (12.6-16.3) Hct 37.5 % L % (38.0-47.0) MCV 86.6 fL fL (81.5-99.8) MCH 28.6 pg pg (27.9-34.1) MCHC 33.1 g/dL g/dL (32.4-36.7) RDW 13.3 % % (11.5-15.2) Plt Count 220 10^3/uL 10^3/uL (150-400) MPV 11.0 fL fL (8.7-11.7) Neut % (Auto) 44.3 % % (39.3-74.2) Lymph % (Auto) 45.6 % H % (15.0-45.0) [place] % (Auto) 7.0 % % (4.5-13.0) Eos % (Auto) 2.5 % % (0.6-7.6) Baso % (Auto) 0.6 % % (0.3-1.7) Nucleat RBC Rel Count 0.0 % % (0.0-0.2) Absolute Neuts (auto) 2.85 10^3/uL 10^3/uL (1.70-6.50) Absolute Lymphs (auto) 2.93 10^3/uL 10^3/uL (1.00-3.00) Absolute Monos (auto) 0.45 10^3/uL 10^3/uL (0.30-0.80) Absolute Eos (auto) 0.16 10^3/uL 10^3/uL (0.03-0.40) Absolute Basos (auto) 0.04 10^3/uL 10^3/uL (0.02-0.10) Absolute Nucleated RBC 0.00 10^3/uL 10^3/uL (0-0.01) Immature Gran % 0.0 % % (0.0-1.1) Immature Gran # 0.00 10^3/uL 10^3/uL (0.00-0.10) D-Dimer < 0.27 ug/mLFEU ug/mLFEU (0.00-0.50) Sodium Potassium Chloride Carbon Dioxide Anion Gap BUN Creatinine Estimated GFR Glucose Calcium POC Troponin I Beta HCG, Qual Medications Given: Discontinued Medications Ketorolac Tromethamine (Toradol) 15 mg IVP EDNOW ONE Stop: 09/18/17 23:38 Last Admin: 09/18/17 23:44 Dose: 15 mg Point of Care Test Results: Chemistry 09/18/17 23:00 POC Troponin I 0.01 ng/mL ng/mL (0.00-0.08) Departure - Departure Disposition: Home, Routine, Self-Care Clinical Impression: Costochondritis, acute Condition: Good Instructions: Costochondritis (ED) Additional Instructions: It appears that you have a condition called costochondritis also known as pleurisy. I suspect this was caused by the cold that you had a few weeks ago. Your symptoms will improve on their own over time. To help with the inflammation that is caused by this, I will give you an anti-inflammatory medication that you can use as needed. Because of your gastritis, I would recommend you use ibuprofen 400 mg every 6 hr with food. Referrals: Ya Cole MD [Primary Care Provider] - As per Instructions Stand Alone Forms: Work Excuse
[2017-09-18] MEDS ORDERED: KETOROLAC 15 MG/1 ML SDV IVP ONE (23:37)
[2017-09-19 00:15] VITALS: BP 136/67
== END 2017-09-19 00:18 | disposition home or self-care (01) ==
DX: M94.0 Chondrocostal junction syndrome [Tietze] (principal); I10 Essential (primary) hypertension
CPT/HCPCS: 84484-PO; 96374; J1885

== ENCOUNTER 2018-07-19 20:11 | Emergency (ER) | payer MEDICAID ==
[2018-07-19] MEDS ORDERED: HYDROGEN PEROXIDE 236 ML BOTTLE TP ONE (21:08)
--- NOTE | 2018-07-19 21:43 | EDPHY ---
H & P Stated Complaint: CLOGGED EARS, DIFF HEARING, HX EAR PROBLEMS Time Seen by Provider: 07/19/18 20:52 HPI/ROS: CHIEF COMPLAINT: "I cant hear" HISTORY OF PRESENT ILLNESS: 32-year-old female complaining of bilateral decreased hearing and popping sensation in her ears. Denies foreign body insertion. Denies barotrauma. Denies dizziness. Denies vertigo. PHYSICAL EXAM (Prior to examination, patient consented to physical exam, hands were washed and my usual and customary physical exam procedures followed) 1) GENERAL: Well-developed, well-nourished, alert and oriented. Appears to be in no acute distress. 2) HEAD: Normocephalic, atraumatic 3) HEENT: Pupils equal, round, reactive to light bilaterally. Sclera anicteric. Ears: Bilateral cerumen impaction noted. No otorrhea. - Personal History LMP (Females 10-55): 8-14 Days Ago Current Tetanus Diphtheria and Acellular Pertussis (TDAP): Yes Tetanus Vaccine Date: JAN 2017 - Medical/Surgical History Hx Asthma: No Hx Chronic Respiratory Disease: No Hx Diabetes: No Hx Cardiac Disease: Yes Hx Renal Disease: No Hx Cirrhosis: No Hx Alcoholism: No Hx HIV/AIDS: No Hx Splenectomy or Spleen Trauma: No Other PMH: hypertension, migraines, christie 05/04/16, chronic ear issues, acne, eustachian tube, gastritis, cyst removed from L ear - Social History Smoking Status: Never smoked Constitutional: Initial Vital Signs Temperature (C) 36.9 C 07/19/18 20:20 Heart Rate 78 07/19/18 20:20 Respiratory Rate 16 07/19/18 20:20 Blood Pressure 133/90 H 07/19/18 20:20 O2 Sat (%) 98 07/19/18 20:20 O2 Delivery Mode Room Air Allergies/Adverse Reactions: sumatriptan Allergy (Mild, Verified 09/18/17 22:24) Other-Enter Comments unk migraine med Allergy (Uncoded 09/18/17 22:24) Home Medications: Medication Instructions Recorded Lisinopril [Prinivil] 03/22/15 Neurontin 10/30/15 Medication For Acne 04/24/17 Rizatriptan 04/24/17 Omeprazole 08/20/17 Carbamide Peroxide [Debrox Ear 5 drop EACHEAR BID #0 btl 07/19/18 drops (OTC)] Medical Decision Making ED Course/Re-evaluation: 10:00 p.m.: Re-evaluation post aural lavage in cerumen disimpaction. EACs are clear bilaterally. No evidence of perforation. Patient states that she is feeling "totally better". Plan discharge home with Debrox prescription. Patient feels comfortable being discharged. All questions and concerns addressed by myself. Patient given my usual and customary discharge precautions and instructions regarding their clinical impression. Care of patient under supervision of secondary supervising physician Dr Temple . Departure - Departure Disposition: Home, Routine, Self-Care Clinical Impression: Cerumen impaction Qualifiers: Laterality: bilateral Qualified Code(s): H61.23 - Impacted cerumen, bilateral Condition: Good Instructions: Cerumen Impaction (ED) Referrals: Eagle Arreola MD [Medical Doctor] - 1-2 days without fail Prescriptions: Carbamide Peroxide [Debrox Ear drops (OTC)] 5 drop EACHEAR BID #0 btl
[2018-07-19 22:09] VITALS: BP 129/84
== END 2018-07-19 22:08 | disposition home or self-care (01) ==
PROC: 3E1B78Z Irrigation of Ear using Irrigating Substance, Via Natural or Artificial Opening (ICD-10-PCS; principal; 2018-07-19)
DX: H61.23 Impacted cerumen, bilateral (principal)